=== PATIENT | male | born 1985 | race Caucasian/White ===

== ENCOUNTER → 2024-05-12 | Outpatient (CLI) | payer OTHER ==
[~2024-05-12] MED LIST: ACET500; ALBU90OI INH; AZIT250 PO; CYCL10 PO; DEXA4 PO; Keflex500 MG PO; LISI10 PO; LOSA50 PO; METF500 PO; NEOPOLHCSU OT; OMEP20ER PO; OXYACE5T PO; PENVK500 PO; RXNEOPOLHC AD; RXOXYACE PO; Zocor20 MG PO
== END | disposition home or self-care (01) ==
LOC: LAB 17:52 → LAB SHORT 17:52
DX: L03.90 Cellulitis, unspecified (principal)
CPT/HCPCS: 87070; 87205

== ENCOUNTER 2025-01-09 03:49 | Emergency (ER) | payer OTHER ==
[~2025-01-09] VITALS: Ht 177.8 cm; Wt 136.5 kg
[2025-01-09] MEDS ORDERED: Ondansetron HCl 2 MG / ML 2ML Vial IV ONE (06:40)
[2025-01-09] MEDS ORDERED: Ketorolac Tromethamine 30mg Vial IV ONE (06:40)
[2025-01-09] MEDS ORDERED: HYDROmorphone HCl/Pf 1MG SYR IV ONE (06:40)
[2025-01-09] MEDS ORDERED: NS 1,000 ML IV SCH (06:40)
[2025-01-09 06:49] LABS: BASOPHILS ABSOLUTE AUTO 0.04 K/mm3 (0.00-0.23); BASOPHILS PERCENT AUTO 0 % (0-2); EOSINOPHILS ABSOLUTE AUTO 0.02 K/mm3 (0.00-0.68); EOSINOPHILS PERCENT AUTO 0 % (0-6); Hematocrit 44.5 % (37.0-53.0); Hemoglobin 15.2 g/dL (13.5-17.5); IMMATURE GRAN ABSOLUTE AUTO 0.03 K/mm3 (0.00-0.10); IMMATURE GRAN PERCENT AUTO 0 % (0-1); LYMPHOCYTES ABSOLUTE AUTO 1.31 K/mm3 (0.84-5.20); LYMPHOCYTES PERCENT AUTO 12 % (21-46); MONOCYTES ABSOLUTE AUTO 0.83 K/mm3 (0.16-1.47); MONOCYTES PERCENT AUTO 7 % (4-13); Mean Corpuscular HGB Conc 34.2 g/dL (31.5-36.5); Mean Corpuscular Volume 83 fL (80-100); NEUTROPHILS ABSOLUTE AUTO 9.19 K/mm3 (1.96-9.15); NEUTROPHILS PERCENT AUTO 80 % (41-73); NRBC ABSOLUTE 0.00 K/mm3 (0.00-0.02); NRBC Auto 0.0 /100 WBC (0.0-0.2); Platelet Count 229 K/mm3 (150-400); RDW Coefficient Variation 12.8 % (11.7-14.2); RDW Standard Deviation 38.3 fL (35.1-46.3)
[2025-01-09 07:10] LABS: Alanine Aminotransfer (ALT/SGP 48.0 U/L (12-78); Albumin, Blood 3.8 g/dL (3.4-5.0); Albumin/Globulin Ratio 0.9 (0.8-1.8); Anion Gap 8.0 mmol/L (3-11); Aspartate Aminotrans (AST/SGOT 62.0 U/L (12-37); Bilirubin, Total 0.5 mg/dL (0.1-1.0); Blood Urea Nitrogen 16.0 mg/dL (8-24); CO2, Blood 26.0 mmol/L (21-32); Calcium, Blood 9.1 mg/dL (8.5-10.1); Chloride, Blood 105.0 mmol/L (98-108); Creatinine, Blood 0.77 mg/dL (0.60-1.20); Globulin, Blood 4.3 g/dL (2.2-4.0); Glucose, Blood 125.0 mg/dL (70-99); Potassium, Blood 5.7 mmol/L (3.5-5.5); Sodium, Blood 133.0 mmol/L (136-145); Total Protein, Blood 8.1 g/dL (6.4-8.2)
[2025-01-09 07:36] LABS: Source, Urine Clean Catch
[2025-01-09 07:39] LABS: Bilirubin, Urine Neg (Neg); Color, Urine Yellow (P-Yellow); Glucose Qualitative, Urine 4+ (Neg); Ketones, Urine Neg (Neg); Leukocyte Esterase, Urine Neg (Neg); Protein, Urine 1+ (Neg); Specific Gravity, Urine 1.005 (1.003-1.022); Urobilinogen, Urine NORM (Normal)
[2025-01-09 07:51] LABS: Red Blood Cells, Urine 25-50 /hpf (0-2); White Blood Cells, Urine 0-2 /hpf (0-5)
[2025-01-09] MEDS ORDERED: Prinivil10 MG PO (08:00)
[2025-01-09] MEDS ORDERED: ATORVASTATIN CA20 MG PO (08:00)
[2025-01-09] MEDS ORDERED: MOUNJARO10 MG/0.5 SQ (08:00)
[2025-01-09] MEDS ORDERED: JARDIANCE25 MG PO (08:01)
[2025-01-09] MEDS ORDERED: MOUNJARO7.5 MG/0.5 SC (08:03)
[2025-01-09] MEDS ORDERED: OXYC5 PO (08:54)
[2025-01-09] MEDS ORDERED: RX Prepack 6 Tabs Oxycodone 5mg UD ONE (08:55)
[2025-01-09 09:45] VITALS: BP 142/90
== END 2025-01-09 09:45 | disposition home or self-care (01) ==
LOC: ER 03:49
PROVIDERS: Emergency Medicine
DX: N13.2 Hydronephrosis with renal and ureteral calculous obstruction (principal); I10 Essential (primary) hypertension; Z79.84 Long term (current) use of oral hypoglycemic drugs; Z79.899 Other long term (current) drug therapy
CPT/HCPCS: 74177; 80053; 81001; 83690; 85025; 96374-59; 96375; 99284-25; A9270; J1171; J1885; J2405; J7030; Q9967

== ENCOUNTER 2025-03-07 09:25 | Emergency (ER) | payer OTHER ==
[~2025-03-07] VITALS: Ht 177.8 cm; Wt 137.4 kg
[~2025-03-07 09:25] MED LIST changes: +ATORVASTATIN CA20 MG PO; +JARDIANCE25 MG PO; +MOUNJARO10 MG/0.5 SQ; +MOUNJARO7.5 MG/0.5 SC; +OXYC5 PO; +Prinivil10 MG PO
[2025-03-07 10:02] VITALS: BP 138/99
[2025-03-07] MEDS ORDERED: NEURONTIN300 MG PO (10:07)
[2025-03-07] MEDS ORDERED: Cyclobenzaprine5 MG PO (10:07)
== END 2025-03-07 11:11 | disposition home or self-care (01) ==
LOC: ER 09:25
DX: M54.42 Lumbago with sciatica, left side (principal); I10 Essential (primary) hypertension; R73.03 Prediabetes; E78.5 Hyperlipidemia, unspecified; Z79.84 Long term (current) use of oral hypoglycemic drugs; Z79.85 Long-term (current) use of injectable non-insulin antidiabetic drugs; Z79.899 Other long term (current) drug therapy
CPT/HCPCS: 99283